=== PATIENT | male | born 1990 | race African-American/Black ===

== ENCOUNTER 2022-09-21 06:07 | Emergency (ER) | payer BC ==
[~2022-09-21] VITALS: Ht 170.2 cm; Wt 122.5 kg
[~2022-09-21 06:07] MED LIST: CLEOCIN HCL150 MG PO
[2022-09-21] MEDS ORDERED: AZITHROMYCIN250 MG PO (06:36)
[2022-09-21] MEDS ORDERED: KETOROLAC TROMETHAMINE 60 MG/2 ML VIAL IM ONE (06:45)
[2022-09-21] MEDS ORDERED: KETOROLAC TROMETHAMINE 30 MG/ML VIAL ONE (06:50)
== END 2022-09-21 07:14 | disposition home or self-care (01) ==
LOC: ER 06:16
DX: R05.9 Cough, unspecified (principal); H66.91 Otitis media, unspecified, right ear; J02.9 Acute pharyngitis, unspecified
CPT/HCPCS: 99282; J1885